=== PATIENT | male | born 1980 | race Caucasian/White ===

== ENCOUNTER 2018-03-26 07:32 | Inpatient (IN) | payer OTHER ==
--- NOTE | 2018-03-18 16:14 | HPE ---
DATE OF ADMISSION: 03/26/2018 CHIEF COMPLAINT: Neck pain and pain radiating to his left upper extremity. HISTORY: This is a pleasant 37-year-old male patient with progressively worsening neck pain and pain radiating to his left upper extremity. He has failed to improve with conservative management. He has elected for surgery for his continued symptoms. He has had x-rays and MRI consistent with degenerative changes at C4-5 and C5-6, mainly with a left-sided disc at C5-6. He continues to have pain with normal daily activities. He was consented by Dr. Jaime for an anterior cervical decompression and fusion at C4-5 and C5-6 with the use of iliac crest bone graft, metal plate and screws. ALLERGIES: No known drug allergies. CURRENT MEDICATIONS: None. PRIOR SURGERY: None. SOCIAL HISTORY: He has discontinued the use of nicotine products. He uses alcohol on a social basis. 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 FAMILY HISTORY: Noncontributory. REVIEW OF SYSTEMS: Denies fever or chills. Denies chest pain, shortness of breath, or cough. Denies difficulty breathing. Denies abdominal pain. Denies nausea or vomiting. Denies recent upper respiratory infection (URI) or urinary tract infection (UTI) symptoms. Notes persistent neck pain and pain radiating to his left upper extremity. CURRENT VITAL SIGNS: Blood pressure 128/60, pulse 72, respirations 12, height 69 inches, weight 205 pounds, temperature 98.0. PHYSICAL Exam: WN, WD, NAD, alert male patient, gait is not wide based. Neck: skin is intact, mild TTP C4-C6, no spasms. DTR's trace, bowser's negative. Spurlings positive. Lungs: BBSCTA, negative rales. Heart: RRR Abdomen: soft, BS present. LABORATORY DATA: None. IMPRESSION: Symptomatic cervical degenerative disc disease at C4-5 and C5-6. PLAN: He has consented for an anterior cervical decompression and fusion at C4-5 and C5-6 with the use of metal cages, iliac crest bone graft and screws. MTDD
[2018-03-26] VITALS (7 sets, daily range): BP systolic 124–138; BP diastolic 78–83
[~2018-03-26] VITALS: Ht 175.3 cm; Wt 99.2 kg
[~2018-03-26 07:32] MED LIST: BACITRACIN PWD 50,000 UNITS VIAL As Ordered ONE; CelecoXIB (CeleBREX) 100 MG CAP PO ONE; GABAPENTIN 100 MG CAP PO ONE; IBUP80TA PO; LIDOCAINE W/EPINEPHRINE 1% 20ML VIAL As Ordered ONE; PERCOCET 5MG/325MG TAB PO ONE; THROMBIN SOLN 20,000 UNITS KIT As Ordered ONE; methylPREDNISolone 500 MG VIAL (J2930) As Ordered ONE
[2018-03-26] MEDS ORDERED: fentaNYL 250 MCG/5 ML INJECTION (J3010) As Ordered ONE (07:40)
[2018-03-26] MEDS ORDERED: dexameTHASONE 4 MG/ML 1ML VIAL (J1100) As Ordered ONE (07:40)
[2018-03-26] MEDS ORDERED: ROCURONIUM BROMIDE 50 MG/5 ML VIAL As Ordered ONE ×4 (07:40→12:13)
[2018-03-26] MEDS ORDERED: PROPOFOL 200 MG/20 ML VIAL As Ordered ONE (07:40)
[2018-03-26] MEDS ORDERED: ONDANSETRON 4MG/2ML VIAL (J2405) As Ordered ONE (07:40)
[2018-03-26] MEDS ORDERED: LIDOCAINE 2% INJ 100 MG/5 ML SDV (FOR ANES.) As Ordered ONE (07:40)
[2018-03-26] MEDS ORDERED: MIDAZOLAM INJ 2 MG/2 ML VIAL (J2250) As Ordered ONE (07:41)
[2018-03-26] MEDS ORDERED: SEVOFLURANE INHAL SOLN 250 ML BTL As Ordered ONE (07:55)
[2018-03-26] MEDS ORDERED: HYDROmorphone HCL 2 MG/ML 1ML VIAL (J1170) As Ordered ONE (09:57)
[2018-03-26] MEDS ORDERED: BUPIVACAINE/EPIN 0.25% 30 ML VIAL As Ordered ONE (11:24)
[2018-03-26] MEDS ORDERED: GLYCOPYRROLATE INJ 0.2 MG/ML 2 ML VIAL As Ordered ONE (13:00)
[2018-03-26] MEDS ORDERED: NEOSTIGMINE 10 MG/10 ML VIAL (J2710) As Ordered ONE (13:00)
[2018-03-26] MEDS ORDERED: LR 1,000 ML IV SCH (14:00)
[2018-03-26] MEDS ORDERED: MORPHINE 10 MG/ML 1ML VIAL (J2270) IV PRN (14:00)
[2018-03-26] MEDS ORDERED: ONDANSETRON 4MG/2ML VIAL (J2405) IV PRN (14:00)
[2018-03-26] MEDS ORDERED: LR 1,000 ML IV ONE (14:00)
[2018-03-26] MEDS ORDERED: fentaNYL 100 MCG/2 ML INJECTION (J3010) IV PRN (14:00)
[2018-03-26] MEDS ORDERED: D5W/LR 1,000 ML IV SCH (14:15)
[2018-03-26] MEDS ORDERED: HYDROMORPHONE HCL 0.5 MG/ 0.5 ML SYRINGE (J1170 PER 1) IV PRN ×2 (14:15)
[2018-03-26] MEDS ORDERED: PERCOCET 5MG/325MG TAB PO PRN (14:15)
[2018-03-26] MEDS ORDERED: PROMETHAZINE INJ 25 MG/ML VIAL (J2550) IV PRN (14:15)
[2018-03-26] MEDS ORDERED: ACETAMINOPHEN TAB 650MG DOSE (2X325MG) PO PRN (14:30)
[2018-03-26] MEDS ORDERED: NORTRIPTYLINE 10 MG CAP PO PRN (14:30)
[2018-03-26] MEDS: PERCOCET 5MG/325MG TAB PO PRN ×2 (17:12→21:52)
--- NOTE | 2018-03-26 19:59 | REP ---
Clinical: Cervical intervention. Technique: Three cross-table intraoperative lateral views of the cervical spine. Findings: Initial images demonstrate a probe via anterior approach at the C6-7 level with final images demonstrating the patient to be status post open level anterior fixation and discectomy. Impression: Status post anterior fixation. Electronically Signed by Luis Romero MD 03/26/2018 07:51 P
[2018-03-26] MEDS: GABAPENTIN 300 MG CAP PO SCH (21:51)
[2018-03-27 06:00] VITALS: BP 135/71
[2018-03-27] MEDS: PERCOCET 5MG/325MG TAB PO PRN (06:54)
[2018-03-27] MEDS ORDERED: METAMUCIL (PSYLLIUM) PACKET PO SCH (09:00)
[2018-03-27] MEDS: GABAPENTIN 300 MG CAP PO SCH (09:01)
--- NOTE | 2018-03-27 11:02 | RO ---
DATE OF PROCEDURE: 03/26/2018 PREOPERATIVE DIAGNOSIS: Cervical spondylosis, primarily left upper extremity radiculopathy, secondary to degenerative changes at C4-5 and C5-6, including disk bulges. POSTOPERATIVE DIAGNOSIS: Cervical spondylosis, primarily left upper extremity radiculopathy, secondary to degenerative changes at C4-5 and C5-6, including disk bulges. PROCEDURE PERFORMED: Anterior cervical decompression and fusion procedure including disk removal, endplate preparation, debridement of uncinate processes, removal of the posterior longitudinal ligament, direct decompression of the thecal sac and spinal column at C4-5; additional level anterior cervical discectomy and fusion (ACDF) at C5-6; preparation, application and installation of interbody biomechanical device at C4-5; application and installation of interbody biomechanical device at C5-6; application of anterior cervical instrumentation Stanchfield plate spanning C4 through C6 with the appropriate screws; harvest and placement of right iliac crest morselized bone graft within the biomechanical titanium cage devices harvested through a separate iliac crest incision. SURGEON: Dr. Lucho Jaime FLAME ANNEALING MACHINE SETTER: JACEK Dunlap ANESTHESIA: General endotracheal. ESTIMATED BLOOD LOSS: Less than 100 mL, replaced with crystalloid. COMPLICATIONS: None. COMPONENTS USED: Included DePuy Stanchfield 28 mm plate, 15 mm screws x4, 14 mm screws x2, size 7 lordotic four web titanium 3D printed cage at C5-6, and size 6 four web lordotic titanium 3D printed cage at C4-5, in addition to iliac crest morselized bone graft, 0.5 mL of demineralized bone matrix putty was applied to the cages. INDICATIONS: A number of month discomfort, including radicular pain down the upper extremity and axial neck discomfort. MRI evidence of cervical spondylosis significant at C4-5 and C5-6. This patient has elected for operative intervention. Given his smoking history as a recent quitter, he did elect for use of iliac crest bone graft combined with titanium cages and anterior instrumentation. CONSENT: Reviewed in detail with the patient including a amadou discussion of the pathology involved in the cervical spine, the procedure proposed, including harvest of iliac crest bone graft, as well as instrumentation, and risks including but not limited to, pain, failure, infection at either site, bleeding, blood loss, paralysis, need for more surgery, swallowing trouble, breathing complication, or other issues. The patient agreed to proceed. OPERATIVE COURSE: Identified in the holding area, site and sides were verified at the right iliac crest as well as cervical spine. He was brought to the operating room and 7 pounds head halter traction was applied. Bump was placed between the shoulder blades. Shoulders were taped to the side. Separate preps were accomplished at the right iliac crest, anterior superior iliac spine as well as the cervical spine. He was sterilely prepped and draped in the usual fashion. Next, I stood on the patient's right side for this right-sided approach. I utilized 3.5 loupe magnification and a headlamp. Mr. Pak stood on the patient's left side in the capacity of senior court office assistant. The patient overall seemed to have a quite short neck. The incision was outlined with a marking pen and infiltrated with 1% lidocaine and made with a 10 blade knife. It was developed down through skin and subcuticular tissues. The platysma was elevated and divided. I located the omohyoid muscle and the dissection continued superior to the omohyoid. I did ligate a small arterial vessel crossing the operative field. Bipolar cautery was also utilized. Dissection continued down identifying the carotid sheath and the prevertebral fascia which was elevated in several leaves off of the anterior vertebral column. I did place a bayonet spinal needle size 22 gauge. At the encountered disk space, which was superior to the omohyoid, a cross-table lateral however verified that this was the 6-7 disk space. The dissection then continued exposing further from C6 through 5 through [address] a bayonet spinal needle at the C4-5 level and obtained a second cross-table lateral, again verifying that level. Next, the longus coli muscles were elevated along the C4 through C6 bilaterally. Distractor pins were placed at C5-6 and I utilized the Shadow Line retractor. The patient had significant body habitus so utilized 50 and a 40 mm blade. Next, C5-6 was approached first. Annulotomy was accomplished with 11 blade, followed by removal of disk material, followed by removal of cartilaginous endplate using curettes, followed by use of the oval bur to further contour the endplates and debride the uncinate processes. The posterior longitudinal ligament was elevated and the thecal sac was exposed. Interestingly, there seemed to be a significant posterior osteophyte on the inferior vertebral body at C5. This was debrided at the time the posterior longitudinal ligament was removed, significantly decompressing the left lateral recess. No active bleeding was encountered. Rasps were utilized. Predicting a size 7, a 7 sound was applied. Next, irrigation was accomplished. Next, we turned attention to the iliac crest. Mr. Pak utilized Meyerding retractors while I infiltrated the line of the incision with 1% lidocaine with epinephrine. I made the incision with a 10 blade knife and developed down through skin and subcuticular tissues to the lateral aspect of the iliac crest about 5 cm lateral to the palpable anterior superior iliac spine. Next, I opened the exposed iliac crest using a Le[place], this was retained for bone graft, and then I utilized an oval bur to further open the iliac crest about a cm square area. I utilized large Mendoza curettes to remove morselized iliac crest bone graft. Mr. Pak in turn took these morselized fragments and installed them, packing the titanium 7 lordotic cage. Additional interstices of the cage were further packed with about 1/4 mL of demineralized bone matrix putty. Next, once this was accomplished, we irrigated and inspected the wound and installed the bone graft and cage composite device at the C5-6 level and tamped it into place. I removed the distractor pins from C6 and contoured anterior vertebral body with alternate bur. Next, distraction was then accomplished at the C4-5 level and the Shadow Line retractor was removed at C4-5. Annulotomy was accomplished in a similar fashion as well as the diskectomy endplate preparation, debridement of the uncinate processes, and also the removal of the posterior longitudinal ligament. Again, there seemed to be stenosis which was a bit worse on the left side than the right side consistent with the patient's symptoms. Next, irrigation was accomplished. We sized for a size 6 lordotic rasp for a size 6 lordotic cage. Next, remaining bone graft material was pressed into a size 6 large orthotic cage along with the demineralized bone matrix putty. We then installed the intervertebral device at the C4-5 level and tamped it into place. Next, we removed the remaining distraction pins. Wax was utilized to plug the pin holes. Next, Mr. Pak exposed with collared retractors while I utilized the oval bur to further contour the anterior vertebral column to receive the plate. It was sized for a size 28 mm Shadow Line plate which was applied. I drilled and installed the plate using the self-tapping screws. I utilized 15 mm screws at C6 bilaterally and 15 mm screws at C4 bilaterally and 14 mm screws at C5 bilaterally. Locking devices were all engaged using the locking screwdriver. Irrigation was again accomplished. We inspected for bleeding and no active bleeding was appreciated. We obtained a cross-table lateral to further verify plate placement and cervical fusion. Please note that the head halter traction was removed prior to plate placement. Next, both wounds were irrigated. The wound closure at the iliac crest was accomplished in layered fashion at the periosteal level followed by the deep dermal level followed by placement of Pernio dressing. Wound closure at this tie also accomplished in layered fashion with interrupted stitch at the platysma followed by deep dermis followed by application of Dermabond type solution. Next, once this was accomplished the patient was placed in his [place] collar, extubated and then moved to the hospital bed in good condition. Mr. Pak was present and participated in the entirety of the case in the capacity of senior court office assistant. For further details, please refer to the medical record.
--- NOTE | 2018-03-30 15:55 | DSES ---
DATE OF ADMISSION: 03/26/2018 DATE OF DISCHARGE: 03/27/2018 ATTENDING PHYSICIAN: Dr. Jaime ADMITTING DIAGNOSIS: Cervical degenerative disc disease, axial neck pain, left upper extremity radiculopathy, cervical degenerative disc disease from C4-5 and C5-6. OTHER DIAGNOSES: None. DISCHARGE DIAGNOSIS: Cervical degenerative disc disease C4-5, C5-6, left upper extremity radiculopathy, axial neck pain, status post anterior cervical decompression and fusion C4-5 and C5-6. OPERATION PERFORMED: Anterior cervical decompression and fusion at C4-5, C5-6 with the use of iliac crest graft and titanium cages HISTORY: This pleasant, 37-year-old male patient with progressively worsening neck pain and pain radiating to his left upper extremity failed to improve with conservative management to include physical therapy, activity modification and nonsteroidal anti-inflammatory drugs (NSAIDs) elected for surgery for his continued symptoms. He was admitted for elective anterior cervical decompression and fusion C4-5 and C5-6. HOSPITAL COURSE: The patient was admitted on day of surgery. Underwent the above listed surgical procedure. He did well in the surgery and there were no complications. He did well in the postoperative period. He was able to tolerate the neck collar and his pain was controlled. On day of discharge, he was doing well. He will use a cervical collar as directed. He will use oral pain medications for pain control. He will resume his preoperative medications and diet. He will followup in our office 7-10 days for surgical followup. Please refer to the medical record for further details.
== END 2018-03-27 10:15 | disposition home or self-care (01) | DRG 473 ==
LOC: M OR 07:32 → M MS5PR 14:20
PROVIDERS: ADMIT Orthopaedic Surgery; ATTEND Orthopaedic Surgery
PROC: 01N10ZZ Release Cervical Nerve, Open Approach (ICD-10-PCS; 2018-03-26)
PROC: 0RH104Z Insertion of Internal Fixation Device into Cervical Vertebral Joint, Open Approach (ICD-10-PCS; 2018-03-26)
PROC: 0QB30ZZ Excision of Left Pelvic Bone, Open Approach (ICD-10-PCS; 2018-03-26)
PROC: 0RG20A0 Fusion of 2 or more Cervical Vertebral Joints with Interbody Fusion Device, Anterior Approach, Anterior Column, Open Approach (ICD-10-PCS; principal; 2018-03-26 08:30)
DX: M50.921 Unspecified cervical disc disorder at C4-C5 level (principal); M50.922 Unspecified cervical disc disorder at C5-C6 level